=== PATIENT | female | born 1980 | race Caucasian/White ===

== ENCOUNTER → 2017-09-17 | Emergency (ER) | payer OTHER ==
[~2017-09-17] VITALS: Ht 165.1 cm; Wt 74.4 kg
[~2017-09-17] MED LIST: IBUPROFEN800 MG PO; MULTIVITAMIN; ORPH100T PO; ORTHO-CYCLEN1 TAB PO
== END | disposition home or self-care (01) ==
LOC: ER 19:12
DX: M94.0 Chondrocostal junction syndrome [Tietze] (principal)

== ENCOUNTER 2018-03-10 13:37 | Emergency (ER) | payer OTHER ==
[~2018-03-10] VITALS: Ht 165.1 cm; Wt 77.1 kg
== END 2018-03-10 16:51 | disposition home or self-care (01) ==
LOC: ER 13:37
DX: K29.70 Gastritis, unspecified, without bleeding (principal)

== ENCOUNTER 2018-03-12 09:00 | Emergency (ER) | payer OTHER ==
[~2018-03-12] VITALS: Ht 165.1 cm; Wt 72.6 kg
[2018-03-12] MEDS ORDERED: INTESTINEX680 M1 PO (12:07)
[2018-03-12] MEDS ORDERED: PEPCID20 MG PO (12:07)
== END 2018-03-12 13:16 | disposition home or self-care (01) ==
LOC: ER 09:00
DX: K29.00 Acute gastritis without bleeding (principal)

== ENCOUNTER 2018-07-17 19:32 | Emergency (ER) | payer OTHER ==
[~2018-07-17] VITALS: Ht 165.1 cm; Wt 73.9 kg
[~2018-07-17 19:32] MED LIST changes: +INTESTINEX680 M1 PO; +PEPCID20 MG PO
== END 2018-07-17 20:37 | disposition home or self-care (01) ==
LOC: ER 19:32
DX: M54.5 Low back pain (principal)

== ENCOUNTER 2018-12-15 15:54 | Emergency (ER) | payer OTHER ==
[~2018-12-15] VITALS: Ht 165.1 cm; Wt 72.1 kg
== END 2018-12-15 20:12 | disposition home or self-care (01) ==
LOC: ER 15:54
DX: R22.9 Localized swelling, mass and lump, unspecified (principal)

== ENCOUNTER 2018-12-29 10:42 | Outpatient (CLI) | payer OTHER | END 2018-12-29 15:47 | disposition home or self-care (01) | LOC: SONOGRAMA 10:42 | DX: R59.0 Localized enlarged lymph nodes (principal) ==

== ENCOUNTER 2020-08-05 11:38 | Emergency (ER) | payer OTHER ==
[~2020-08-05] VITALS: Ht 165.1 cm; Wt 76.2 kg
[2020-08-05] MEDS ORDERED: VITAMINS A & D1 EACH (12:18)
[2020-08-05] MEDS ORDERED: KETO10TA2 PO (15:15)
== END 2020-08-05 16:12 | disposition home or self-care (01) ==
LOC: ER 11:38
DX: S93.692A Other sprain of left foot, initial encounter (principal); X50.0XXA Overexertion from strenuous movement or load, initial encounter; Y93.B9 Activity, other involving muscle strengthening exercises; Y92.098 Other place in other non-institutional residence as the place of occurrence of the external cause; Y99.8 Other external cause status

== ENCOUNTER 2022-01-29 09:20 | Emergency (ER) | payer OTHER ==
[~2022-01-29] VITALS: Ht 165.1 cm; Wt 78.9 kg
[~2022-01-29 09:20] MED LIST changes: +KETO10TA2 PO; +VITAMINS A & D1 EACH
[2022-01-29] MEDS ORDERED: KETO10TA2 PO (11:36)
== END 2022-01-29 12:14 | disposition home or self-care (01) ==
LOC: ER 09:20
DX: M79.671 Pain in right foot (principal)